=== PATIENT | female | born 1950 | race American Indian/Alaskan Native ===

== ENCOUNTER 2019-04-29 09:26 | Outpatient (CLI) | payer MEDICARE ==
--- NOTE | 2019-04-29 11:53 | XRay Report ---
RIGHT KNEE, 3 VIEWS INDICATION: M25.561 PAIN IN RIGHT KNEE. COMPARISON: None. IMPRESSION: Borderline bone mineralization. Mild osteoarthritic changes are identified in all 3 com partments of the knee. No advanced degenerative changes. Trace joint effusion is suspected on the lat eral image. No evidence for fracture or bone lesion. Signer Name: Tramaine Joyce Jr, MD Signed: 04/29/2019 11:49 AM Workstation Name: [id number]
--- NOTE | 2019-04-29 11:54 | XRay Report ---
RIGHT SHOULDER, 3 VIEWS INDICATION: M25.511 RIGHT SHOULDER PAIN. COMPARISON: None. IMPRESSION: Borderline bone mineralization. Mild to moderate osteoarthritic changes are identified a t the glenohumeral joint and acromioclavicular joint. No evidence for fracture, ligamentous injury o r bone lesion. The soft tissues are unremarkable. Signer Name: Tramaine Joyce Jr, MD Signed: 04/29/2019 11:49 AM Workstation Name: [id number]
--- NOTE | 2019-04-29 11:55 | XRay Report ---
LUMBOSACRAL SPINE, 3 VIEWS INDICATION: BACK PAIN. COMPARISON: None. IMPRESSION: Borderline bone mineralization. There is moderate levocurvature to the lower thoracic sp ine and upper lumbar spine. Moderate to severe multilevel degenerative disc disease and hypertrophic facet arthropathy are identified. No evidence for compression deformity or malalignment. No acute os seous or soft tissue abnormality. Signer Name: Tramaine Joyce Jr, MD Signed: 04/29/2019 11:50 AM Workstation Name: [id number]
== END 2019-04-29 09:27 | disposition home or self-care (01) ==
LOC: XRAY 09:26
PROVIDERS: ATTEND Nurse Practitioner Family
DX: M17.11 Unilateral primary osteoarthritis, right knee (principal); M51.36 Other intervertebral disc degeneration, lumbar region; M19.011 Primary osteoarthritis, right shoulder
CPT/HCPCS: 72100